=== PATIENT | male | born 1940 | race Caucasian/White ===

== ENCOUNTER 2016-05-05 08:28 | Outpatient (CLI) | payer MEDICARE ==
[2016-05-05 09:17] LABS: #Basophils 0.1 thou/uL (0.0-0.2); #Eosinphils 0.1 thou/uL (0.0-0.7); #Lymphocytes 3.4 thou/uL (1.20-3.40); #Monocytes 0.7 thou/uL (0.11-0.59); #Neutrophils 6.1 thou/uL (1.40-6.50); %Eosinophils 0.8 % (0.0-10.0); %Monocytes 6.6 % (0.0-10.0); %Neutrophils 58.5 % (42.0-75.0); Mean Corpuscular HGB CONC 33.9 g/dL (32.0-36.0); Mean Corpuscular Hemoglobin 31.2 pg (27.0-31.0); Mean Platelet Volume 9.1 fL (7.4-10.4); Platelet Count 272 thou/uL (130-400); RBC Distribution Width 11.7 % (11.5-14.5); Red Blood Cell (RBC) Count 4.79 mill/uL (4.70-6.10); White Blood Cell (WBC) Count 10.4 thou/uL (4.8-10.8)
[2016-05-05 09:29] LABS: Hemoglobin A1c 7.1 % (4.0-6.0)
[2016-05-05 09:47] LABS: ALT (SGPT) 24 U/L (0-55); AST (SGOT) 21 U/L (5-34); Albumin 4.2 g/dL (3.4-4.8); Alkaline Phosphatase 54 U/L (40-150); Anion Gap 15 mmol/L (10-20); BUN (Urea Nitrogen) 15 mg/dL (8.4-25.7); Bilirubin, Direct 0.2 mg/dL (0.1-0.3); Bilirubin, Total 0.5 mg/dL (0.2-1.2); Calc. Creatinine Clearance 0 mL/min (70-130); Calcium 9.5 mg/dL (7.8-10.44); Carbon Dioxide 23 mmol/L (23-31); Chloride 103 mmol/L (98-107); Cholesterol 183 mg/dL (< 200 Desired); Estimated GFR-MDRD 56; Glucose 153 mg/dL (83-110); HDL Cholesterol 46 mg/dL (>60 Neg Risk); LDL Cholesterol, Calculated 105 mg/dL; Protein, Total 7.5 g/dL (5.8-8.1); Sodium 137 mmol/L (136-145); Triglycerides 158 mg/dL (Less than 150)
[2016-05-05 17:37] LABS: Creatinine, Urine 234.97 mg/dL (63-166); Microalbumin Urine 1.5 mg/dL (0.5-50.0); Microalbumin/Creat Ratio 6.4 mg/g (Less than 30)
== END 2016-05-05 08:29 ==
LOC: MADLABBHPM 08:28
PROVIDERS: ATTEND Family Medicine
DX: E78.5 Hyperlipidemia, unspecified (principal); E11.22 Type 2 diabetes mellitus with diabetic chronic kidney disease; N18.3 Chronic kidney disease, stage 3 (moderate)
CPT/HCPCS: 36415; 80048; 80061; 80076; 82043; 82570; 83036; 85025

== ENCOUNTER 2016-08-03 08:51 | Outpatient (CLI) | payer MEDICARE ==
[2016-08-03 09:22] LABS: Hemoglobin A1c 7.7 % (4.0-6.0)
[2016-08-03 09:24] LABS: ALT (SGPT) 25 U/L (0-55); AST (SGOT) 24 U/L (5-34); Albumin 4.2 g/dL (3.4-4.8); Alkaline Phosphatase 61 U/L (40-150); Anion Gap 15 mmol/L (10-20); BUN (Urea Nitrogen) 19 mg/dL (8.4-25.7); Bilirubin, Direct 0.2 mg/dL (0.1-0.3); Bilirubin, Total 0.6 mg/dL (0.2-1.2); Calc. Creatinine Clearance 0 mL/min (70-130); Calcium 9.7 mg/dL (7.8-10.44); Carbon Dioxide 23 mmol/L (23-31); Cardiac Risk 4.4 (Less than 4.5); Chloride 102 mmol/L (98-107); Cholesterol 194 mg/dL (< 200 Desired); Estimated GFR-MDRD 55; Glucose 171 mg/dL (83-110); HDL Cholesterol 44 mg/dL (>60 Neg Risk); LDL Cholesterol, Calculated 111 mg/dL; Potassium 4.1 mmol/L (3.5-5.1); Protein, Total 7.7 g/dL (5.8-8.1); Sodium 136 mmol/L (136-145); Triglycerides 193 mg/dL (Less than 150)
== END 2016-08-03 08:52 ==
LOC: MADLABBHPM 08:51
PROVIDERS: ATTEND Family Medicine
DX: E11.9 Type 2 diabetes mellitus without complications (principal)
CPT/HCPCS: 36415; 80048; 80061; 80076; 83036

== ENCOUNTER 2016-08-24 09:01 | Outpatient (CLI) | payer MEDICARE | END 2016-08-24 09:02 | disposition home or self-care (01) | LOC: MADLAB 09:01 | PROVIDERS: ATTEND Internal Medicine Gastroenterology | DX: K51.90 Ulcerative colitis, unspecified, without complications (principal) | CPT/HCPCS: 36415; 87015; 87045; 87046; 87177; 87324; 87449; 87899 ==

== ENCOUNTER 2016-11-02 08:52 | Outpatient (CLI) | payer MEDICARE ==
[2016-11-02 09:51] LABS: #Basophils 0.1 thou/uL (0.0-0.2); #Eosinphils 0.1 thou/uL (0.0-0.7); #Lymphocytes 3.8 thou/uL (1.20-3.40); #Monocytes 0.7 thou/uL (0.11-0.59); #Neutrophils 5.6 thou/uL (1.40-6.50); %Basophils 1.1 % (0.0-1.0); %Eosinophils 0.9 % (0.0-10.0); %Lymphocytes 37.2 % (21.0-51.0); %Monocytes 6.9 % (0.0-10.0); Hemoglobin 14.7 g/dL (14.0-18.0); Mean Corpuscular HGB CONC 32.7 g/dL (32.0-36.0); Mean Corpuscular Hemoglobin 30.3 pg (27.0-31.0); Mean Corpuscular Volume 92.6 fl (80.0-94.0); Mean Platelet Volume 8.8 fL (7.4-10.4); Platelet Count 256 thou/uL (130-400); RBC Distribution Width 12.2 % (11.5-14.5); Red Blood Cell (RBC) Count 4.87 mill/uL (4.70-6.10); White Blood Cell (WBC) Count 10.3 thou/uL (4.8-10.8)
[2016-11-02 09:54] LABS: ALT (SGPT) 22 U/L (8-55); AST (SGOT) 17 U/L (5-34); Alkaline Phosphatase 58 U/L (40-150); Anion Gap 14 mmol/L (10-20); BUN (Urea Nitrogen) 12 mg/dL (8.4-25.7); Bilirubin, Direct 0.2 mg/dL (0.1-0.3); Bilirubin, Total 0.6 mg/dL (0.2-1.2); Calc. Creatinine Clearance 0 mL/min (70-130); Calcium 9.6 mg/dL (7.8-10.44); Carbon Dioxide 23 mmol/L (23-31); Cardiac Risk 3.9 (Less than 4.5); Chloride 103 mmol/L (98-107); Cholesterol 178 mg/dl (< 200 Desired); Estimated GFR-MDRD 63; Glucose 177 mg/dL (83-110); HDL Cholesterol 46 mg/dL (>60 Neg Risk); LDL Cholesterol, Calculated 96 mg/dL; Potassium 4.1 mmol/L (3.5-5.1); Protein, Total 7.7 g/dL (5.8-8.1); Sodium 136 mmol/L (136-145); Triglycerides 180 mg/dL (Less than 150)
[2016-11-02 11:38] LABS: Hemoglobin A1c 7.9 % (4.0-6.0)
== END 2016-11-02 08:53 ==
LOC: MADLABBHPM 08:52
PROVIDERS: ATTEND Family Medicine
DX: E78.5 Hyperlipidemia, unspecified (principal); E11.9 Type 2 diabetes mellitus without complications; K51.919 Ulcerative colitis, unspecified with unspecified complications
CPT/HCPCS: 80048; 80061; 80076; 83036; 85025

== ENCOUNTER 2017-01-05 10:21 | Outpatient (CLI) | payer MEDICARE | END 2017-01-05 10:22 | disposition home or self-care (01) | LOC: MADLAB 10:21 | PROVIDERS: ATTEND Internal Medicine Gastroenterology | DX: R19.7 Diarrhea, unspecified (principal) | CPT/HCPCS: 36415; 87324; 87449 ==

== ENCOUNTER 2017-04-03 09:49 | Outpatient (CLI) | payer MEDICARE ==
[~2017-04-03 09:49] MED LIST: Iopamidol 370 76% 100 ML VIAL ONE
--- NOTE | 2017-04-03 14:44 | ULT ---
RIGHT UPPER QUADRANT ULTRASOUND: DATE: 04/03/17. COMPARISON: None. HISTORY: Colitis, hepatitis C. TECHNIQUE: Multiplanar, zhou scale, sonographic imaging of the right upper quadrant provided. FINDINGS: The pancreas is not well assessed secondary to body habitus and bowel gas. The hepatic parenchyma is heterogeneous. Portions of the liver are obscured secondary to shadowing from bowel gas and shadowing from overlying ribs. No discrete intrahepatic mass or biliary dilatation appreciated. The right kidney measures a pproximately 12.8 cm in craniocaudal dimension and demonstrates no stone, hydronephrosis, or mass. Common bile duct measures in the 4-5 mm range, within normal limits. Imaging in the expected location of the gallbladder fossa demonstrates prominent shadowing suggesting a gallbladder filled with stones. This limits evaluation for pericholecystic fluid and gallbladder wall thickening. 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 IMPRESSION: Limited study secondary to bowel gas. Hepatic parenchyma is heterogeneous and echogenic, suggesting hepatocellular disease. 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 Recommend fur ther assessment via CT examination of the abdomen. CODE T POS: ANA CRISTINA
--- NOTE | 2017-04-03 15:06 | CT ---
ABDOMEN CT WITH CONTRAST PELVIC CT WITH CONTRAST: Date: 04/03/17 COMPARISON: 01/24/17. HISTORY: Chronic hepatitis C. Surgical colectomy years ago. History of ulcerative colitis. TECHNIQUE: An abdomen and pelvic CT are performed with IV contrast. Enteric contrast was also administered. Joseph nal reformatted images are submitted for interpretation. FINDINGS: ABDOMEN CT: Calcified granuloma in right lung base. Heart size normal. No significant pericardial fluid. Coronary arteries are unremarkable. The descending thoracic aorta and abdominal aorta demonstrate atheroscler osis. No aneurysm. No acute dissection. 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 Eccentric thrombus is noted. Proximal common iliac arteries are unremark able. Symmetric attenuation of the psoas muscles. Intra and extrahepatic portal vein is patent. Liver, spleen, pancreas, and adrenal glands have appropriate enhancement. Symmetric enhancement of the kidneys. Bilaterally, no obstructive uropathy. There is dehiscence of the ventral abdominal wall. Mesentery and intra-abdominal contents do not appe ar to extend beyond the anterior peritoneum. No evidence of herniation. No evidence of bowel obstruct ion. Residual colon is unremarkable. There are calcifications in the wall of the gallbladder, unchanged from the prior exam. PELVIC CT: No pelvic mass, lymphadenopathy, free air, or free fluid, Urinary bladder is unremarkable. No lytic or blastic lesions in the osseous structures. IMPRESSION: 1. Findings compatible with a near complete total colectomy. No inflammatory change involving the vi sualized alimentary canal. 2. Dehiscence of the ventral abdominal wall without vernon herniation. Findings are similar to the pr evious examination. POS: TANVI
== END 2017-04-03 09:50 | disposition home or self-care (01) ==
LOC: MADRAD 09:49
PROVIDERS: ATTEND Internal Medicine Gastroenterology
DX: K51.90 Ulcerative colitis, unspecified, without complications (principal); B18.2 Chronic viral hepatitis C
CPT/HCPCS: 36415; 74177; 76705; 82565

== ENCOUNTER 2017-07-07 09:36 | Outpatient (CLI) | payer MEDICARE ==
[2017-07-07 10:22] LABS: Anion Gap 18 mmol/L (10-20); BUN (Urea Nitrogen) 21 mg/dL (8.4-25.7); Calc. Creatinine Clearance 0 mL/min (70-130); Calcium 9.4 mg/dL (7.8-10.44); Carbon Dioxide 20 mmol/L (23-31); Chloride 102 mmol/L (98-107); Estimated GFR-MDRD 68; Glucose 156 mg/dL (83-110); Potassium 3.4 mmol/L (3.5-5.1); Sodium 137 mmol/L (136-145)
== END 2017-07-07 09:37 | disposition home or self-care (01) ==
LOC: MADLABBHPM 09:36
PROVIDERS: ATTEND Family Medicine
DX: E11.9 Type 2 diabetes mellitus without complications (principal)
CPT/HCPCS: 36415; 80048

== ENCOUNTER 2017-09-01 09:58 | Emergency (ER) | payer MEDICARE ==
[~2017-09-01 09:58] MED LIST changes: -Iopamidol 370 76% 100 ML VIAL ONE; +Sodium Chloride 0.9% 1,000 ML BAG ONE
[2017-09-01] MEDS ORDERED: Metoclopramide HCl 10 MG/2 ML VIAL ONE (10:35)
[2017-09-01] MEDS ORDERED: Ketorolac Tromethamine 30 MG/ML VIAL ONE (10:35)
[2017-09-01] MEDS ORDERED: methylPREDNISolone Sod Succ/PF 125 MG/2 ML VIAL ONE (10:35)
[2017-09-01] MEDS ORDERED: Dexamethasone 10 MG/ML VIAL ONE (10:35)
[2017-09-01] MEDS ORDERED: Ondansetron HCl/PF 4 MG/2 ML Vial ONE (10:35)
[2017-09-01 10:46] LABS: Prothrombin Time 13.6 SEC (12.0-14.7)
[2017-09-01 10:47] LABS: PTT 28.6 SEC (22.9-36.1)
[2017-09-01 10:51] LABS: Band 2 % (5-11); Hemoglobin 14.1 g/dL (14.0-18.0); Lymphocytes 12 % (21-51); MDiff Complete? YES; Mean Corpuscular HGB CONC 32.8 g/dL (32.0-36.0); Mean Corpuscular Volume 85.2 fl (80.0-94.0); Mean Platelet Volume 7.1 fL (7.4-10.4); Metamyelocyte 2 % (0-0); Monocytes 4 % (0-10); Neutrophil 80 % (42-75); Platelet Count 299 thou/uL (130-400); Red Blood Cell (RBC) Count 5.06 mill/uL (4.70-6.10); White Blood Cell (WBC) Count 10.9 thou/uL (4.8-10.8)
[2017-09-01 11:10] LABS: CKMB 0.6 ng/mL (0-6.6); Troponin I 0.017 ng/mL (< 0.028)
[2017-09-01 11:11] LABS: ALT (SGPT) 20 U/L (8-55); AST (SGOT) 18 U/L (5-34); Albumin 3.7 g/dL (3.4-4.8); Alkaline Phosphatase 72 U/L (40-150); Anion Gap 21 mmol/L (10-20); BUN (Urea Nitrogen) 21 mg/dL (8.4-25.7); Bilirubin, Total 0.6 mg/dL (0.2-1.2); Calc. Creatinine Clearance 0 mL/min (70-130); Calcium 10.1 mg/dL (7.8-10.44); Carbon Dioxide 21 mmol/L (23-31); Chloride 102 mmol/L (98-107); Estimated GFR-MDRD 54; Globulin 4.1 g/dL (2.4-3.5); Glucose 174 mg/dL (83-110); Lipase 30 U/L (8-78); Magnesium 1.5 mg/dL (1.6-2.6); Potassium 3.8 mmol/L (3.5-5.1); Protein, Total 7.8 g/dL (5.8-8.1)
[2017-09-01 11:13] LABS: Sodium 140 mmol/L (136-145)
[2017-09-01 11:24] LABS: CK (CPK) 35 U/L (30-200)
--- NOTE | 2017-09-01 11:40 | RAD ---
PORTABLE CHEST ONE VIEW: 09/01/2017 10:23 a.m. HISTORY: Abdominal pain. COMPARISON: 03/15/2017 FINDINGS: Heart size is borderline but stable. Evidence of old granulomatous disease is again seen. No focal areas of consolidation, pneumothoraces, vernon pulmonary edema, or pleural effusions are identified. IMPRESSION: No acute process. POS: [facility]
[2017-09-01 11:48] LABS: Bilirubin Small (Negative); Blood, Urine Moderate (Negative); Clarity Clear (Clear); Glucose, Urine (Dipstick) 100 mg/dL (Negative); Leukocyte Negative (Negative); Nitrite Negative (Negative); Protein, Urine (Dipstick) > or equal to 300 mg/dL (Neg-Trace); Urobilinogen 0.2 mg/dL (0.2-1.0); pH, Urine 5.5 (5.0-9.0)
[2017-09-01 11:52] LABS: Bacteria/HPF Rare-Few HPF (None Seen); Other Microscopic Description C&S SET UP; RBC/HPF 0-3 HPF (0-3); Squamous Epithelial 0-3 HPF (0-3); WBC/HPF 0-3 HPF (0-3)
== END 2017-09-01 16:39 | disposition short-term general hospital (02) ==
LOC: MADERS 09:58
DX: E27.40 Unspecified adrenocortical insufficiency (principal); E11.9 Type 2 diabetes mellitus without complications; K58.9 Irritable bowel syndrome, unspecified; E78.5 Hyperlipidemia, unspecified; I10 Essential (primary) hypertension
CPT/HCPCS: 36415; 36416; 71045; 80053; 81001; 82150; 82553; 83690; 83735; 83880; 84484; 85025; 85610; 85730; 87077; 87086; 93005; 94760; 96361; 96374; 96375; J1100; J1885; J2405; J2765; J2930; J7050

== ENCOUNTER 2017-10-05 10:30 | Outpatient (CLI) | payer MEDICARE ==
[2017-10-05 11:13] LABS: #Basophils 0.1 thou/uL (0.0-0.2); #Lymphocytes 3.1 thou/uL (1.20-3.40); #Monocytes 0.5 thou/uL (0.11-0.59); #Neutrophils 11.7 thou/uL (1.40-6.50); %Basophils 0.4 % (0.0-1.0); %Eosinophils 0.2 % (0.0-10.0); %Lymphocytes 20.2 % (21.0-51.0); %Monocytes 3.5 % (0.0-10.0); %Neutrophils 75.8 % (42.0-75.0); Hemoglobin 13.7 g/dL (14.0-18.0); Mean Corpuscular HGB CONC 32.8 g/dL (32.0-36.0); Mean Corpuscular Hemoglobin 28.4 pg (27.0-31.0); Mean Corpuscular Volume 86.6 fL (78.0-98.0); Mean Platelet Volume 7.5 fL (7.4-10.4); Platelet Count 298 thou/uL (130-400); Red Blood Cell (RBC) Count 4.83 mill/uL (4.70-6.10); White Blood Cell (WBC) Count 15.4 thou/uL (4.8-10.8)
[2017-10-05 11:24] LABS: Anion Gap 15 mmol/L (10-20); BUN (Urea Nitrogen) 16 mg/dL (8.4-25.7); Calc. Creatinine Clearance 0 mL/min (70-130); Calcium 9.7 mg/dL (7.8-10.44); Carbon Dioxide 26 mmol/L (23-31); Chloride 101 mmol/L (98-107); Estimated GFR-MDRD 71; Glucose 215 mg/dL (83-110); Potassium 4.2 mmol/L (3.5-5.1); Sodium 138 mmol/L (136-145)
== END 2017-10-05 10:31 ==
LOC: MADLABBHPM 10:30
PROVIDERS: ATTEND Family Medicine
DX: E11.22 Type 2 diabetes mellitus with diabetic chronic kidney disease (principal); N18.3 Chronic kidney disease, stage 3 (moderate)
CPT/HCPCS: 36415; 80048; 85025

== ENCOUNTER 2020-08-05 19:20 | Inpatient (IN) | payer MEDICARE ==
[2020-08-05] MEDS ORDERED: predniSONE 5 MG TAB PO SCH (22:15)
[2020-08-05] MEDS ORDERED: Acetaminophen 325 MG TAB PO PRN (22:21)
[2020-08-05] MEDS ORDERED: Nystatin Powder 15 GM BOT TOP SCH (22:30)
[2020-08-05] MEDS ORDERED: metFORMIN 500 MG TAB PO SCH (22:30)
[2020-08-05] MEDS: Cholestyramine/Aspartame 4 gm Packet PO SCH ×2 (22:37→23:17)
[2020-08-05] MEDS ORDERED: Lantus 1000 UNITS/10 ML VIAL SC SCH (23:15)
[2020-08-05] MEDS ORDERED: Carvedilol 3.125 MG TAB PO SCH (23:15)
[2020-08-05] MEDS: Vancomycin HCl 25 MG/ML Oral PO SCH (23:45)
[2020-08-06] MEDS: Vancomycin HCl 25 MG/ML Oral PO SCH ×4 (05:26→23:53)
[2020-08-06 05:43] LABS: #Basophils 0.1 thou/uL (0.0-0.2); #Eosinphils 0.1 thou/uL (0.0-0.7); #Lymphocytes 3.3 thou/uL (1.20-3.40); #Monocytes 0.6 thou/uL (0.11-0.59); #Neutrophils 11.5 thou/uL (1.40-6.50); %Basophils 0.4 % (0.0-1.0); %Eosinophils 0.5 % (0.0-10.0); %Lymphocytes 21.4 % (21.0-51.0); %Monocytes 3.6 % (0.0-10.0); %Neutrophils 74.2 % (42.0-75.0); Anisocytosis SLIGHT = 6-15 cells (100X) (0-5/hpf); Hemoglobin 9.8 g/dL (14.0-18.0); Hypochromia SLIGHT = 6-15 cells (100X) (0-5/hpf); MDiff Complete? YES; Mean Corpuscular HGB CONC 30.7 g/dL (32.0-36.0); Mean Corpuscular Hemoglobin 23.6 pg (27.0-31.0); Mean Corpuscular Volume 76.9 fL (78.0-98.0); Mean Platelet Volume 8.1 fL (7.4-10.4); Platelet Count 387 thou/uL (130-400); Platelet Morphology Comment Appears Adequate; RBC Distribution Width 17.5 % (11.5-14.5); Red Blood Cell (RBC) Count 4.14 mill/uL (4.70-6.10); White Blood Cell (WBC) Count 15.5 thou/uL (4.8-10.8)
[2020-08-06 05:47] LABS: ALT (SGPT) 19 U/L (8-55); AST (SGOT) 15 U/L (5-34); Albumin 3.2 g/dL (3.4-4.8); Alkaline Phosphatase 69 U/L (40-110); Anion Gap 16 mmol/L (10-20); BUN (Urea Nitrogen) 20 mg/dL (8.4-25.7); Bilirubin, Total 0.4 mg/dL (0.2-1.2); Calc. Creatinine Clearance 90 mL/min (70-130); Calcium 8.3 mg/dL (7.8-10.44); Carbon Dioxide 25 mmol/L (23-31); Chloride 108 mmol/L (98-107); Globulin 2.9 g/dL (2.4-3.5); Glucose 138 mg/dL (83-110); Potassium 3.7 mmol/L (3.5-5.1); Protein, Total 6.1 g/dL (5.8-8.1); Sodium 145 mmol/L (136-145)
[2020-08-06] MEDS ORDERED: Dextrose 50% Abboject 50 ML SYRINGE IVP PRN (07:15)
[2020-08-06] MEDS ORDERED: Dextrose 5% in Water 1,000 ML IV PRN (07:15)
[2020-08-06] MEDS ORDERED: Acetaminophen 325 MG TAB PO PRN ×2 (08:40→08:41)
[2020-08-06] MEDS ORDERED: Diphenoxylate HCl/Atropine Tablet PO PRN (08:42)
[2020-08-06] MEDS ORDERED: NIFEdipine XL 30 MG TAB PO SCH (09:00)
[2020-08-06] MEDS: metFORMIN 500 MG TAB PO SCH ×2 (09:54→17:10)
[2020-08-06] MEDS: Losartan Potassium 50 MG TAB PO SCH (09:54)
[2020-08-06] MEDS: Aspirin 81 mg Enteric Coated Tablet PO SCH (09:55)
[2020-08-06] MEDS: Carvedilol 3.125 MG TAB PO SCH ×2 (09:55→22:04)
[2020-08-06] MEDS: predniSONE 5 MG TAB PO SCH ×2 (09:55→17:10)
[2020-08-06] MEDS: Furosemide 20 MG TAB PO SCH (09:55)
[2020-08-06] MEDS: Rosuvastatin 10 MG TAB PO SCH (09:55)
[2020-08-06] MEDS: Nystatin Powder 15 GM BOT TOP SCH ×2 (09:56→22:09)
[2020-08-06] MEDS ORDERED: Cholestyramine/Aspartame 4 gm Packet PO SCH (10:00)
[2020-08-06] MEDS ORDERED: Lantus 1000 UNITS/10 ML VIAL SC SCH (21:00)
[2020-08-06] MEDS: Atorvastatin Calcium 10 MG TAB PO SCH (22:04)
[2020-08-06] MEDS: Lantus 1000 UNITS/10 ML VIAL SC SCH (22:06)
[2020-08-06] MEDS: Acetaminophen 325 MG TAB PO PRN (22:43)
[2020-08-07 05:43] LABS: #Lymphocytes 2.9 thou/uL (1.20-3.40); #Monocytes 0.6 thou/uL (0.11-0.59); #Neutrophils 7.3 thou/uL (1.40-6.50); %Basophils 0.4 % (0.0-1.0); %Eosinophils 0.4 % (0.0-10.0); %Lymphocytes 26.4 % (21.0-51.0); %Monocytes 5.9 % (0.0-10.0); %Neutrophils 66.9 % (42.0-75.0); Anisocytosis SLIGHT = 6-15 cells (100X) (0-5/hpf); Hemoglobin 8.5 g/dL (14.0-18.0); Hypochromia SLIGHT = 6-15 cells (100X) (0-5/hpf); MDiff Complete? YES; Mean Corpuscular HGB CONC 30.4 g/dL (32.0-36.0); Mean Corpuscular Hemoglobin 23.4 pg (27.0-31.0); Mean Corpuscular Volume 76.9 fL (78.0-98.0); Mean Platelet Volume 8.2 fL (7.4-10.4); Platelet Count 329 thou/uL (130-400); Platelet Morphology Comment Appears Adequate; RBC Distribution Width 17.1 % (11.5-14.5); Red Blood Cell (RBC) Count 3.63 mill/uL (4.70-6.10); White Blood Cell (WBC) Count 10.9 thou/uL (4.8-10.8)
[2020-08-07] MEDS: Vancomycin HCl 25 MG/ML Oral PO SCH ×4 (05:56→23:05)
[2020-08-07] MEDS: Aspirin 81 mg Enteric Coated Tablet PO SCH (09:25)
[2020-08-07] MEDS: predniSONE 5 MG TAB PO SCH ×2 (09:26→17:10)
[2020-08-07] MEDS: Clopidogrel Bisulfate 75 MG TAB PO SCH (09:27)
[2020-08-07] MEDS: metFORMIN 500 MG TAB PO SCH ×2 (09:27→17:11)
[2020-08-07] MEDS: Rosuvastatin 10 MG TAB PO SCH (09:27)
[2020-08-07] MEDS: Furosemide 20 MG TAB PO SCH (09:27)
[2020-08-07] MEDS: Carvedilol 3.125 MG TAB PO SCH ×2 (09:28→22:00)
[2020-08-07] MEDS: Nystatin Powder 15 GM BOT TOP SCH ×2 (09:28→22:02)
[2020-08-07] MEDS: Losartan Potassium 50 MG TAB PO SCH (09:28)
[2020-08-07 11:40] LABS: Hemoglobin A1c 6.9 % (4.0-6.0)
[2020-08-07] MEDS: HumaLOG 300 UNITS/3 ML VIAL SC PRN (17:08)
[2020-08-07] MEDS: Acetaminophen 325 MG TAB PO PRN (17:11)
[2020-08-07] MEDS: Atorvastatin Calcium 10 MG TAB PO SCH (22:00)
[2020-08-07] MEDS: Lantus 1000 UNITS/10 ML VIAL SC SCH (22:01)
[2020-08-08] MEDS: Vancomycin HCl 25 MG/ML Oral PO SCH ×4 (05:42→23:36)
[2020-08-08] MEDS: metFORMIN 500 MG TAB PO SCH ×2 (08:14→17:07)
[2020-08-08] MEDS: Rosuvastatin 10 MG TAB PO SCH (08:14)
[2020-08-08] MEDS: Clopidogrel Bisulfate 75 MG TAB PO SCH (08:14)
[2020-08-08] MEDS: Furosemide 20 MG TAB PO SCH (08:14)
[2020-08-08] MEDS: Losartan Potassium 50 MG TAB PO SCH ×2 (08:14→08:15)
[2020-08-08] MEDS: Aspirin 81 mg Enteric Coated Tablet PO SCH (08:14)
[2020-08-08] MEDS: Carvedilol 3.125 MG TAB PO SCH ×2 (08:15→21:41)
[2020-08-08] MEDS: predniSONE 5 MG TAB PO SCH ×2 (08:15→17:08)
[2020-08-08] MEDS: Nystatin Powder 15 GM BOT TOP SCH ×2 (08:16→21:42)
[2020-08-08] MEDS: HumaLOG 300 UNITS/3 ML VIAL SC PRN (17:09)
[2020-08-08] MEDS: Atorvastatin Calcium 10 MG TAB PO SCH (21:40)
[2020-08-08] MEDS: Lantus 1000 UNITS/10 ML VIAL SC SCH (21:42)
[2020-08-08] MEDS: Acetaminophen 325 MG TAB PO PRN (21:42)
[2020-08-08] MEDS ORDERED: Mag-Al Plus 1200 MG/1200 MG/120 MG/30 ML UDCUP PO PRN (23:12)
[2020-08-09] MEDS: Aspirin 81 mg Enteric Coated Tablet PO SCH (11:07)
[2020-08-09] MEDS: Vancomycin HCl 25 MG/ML Oral PO SCH ×3 (11:07→17:11)
[2020-08-09] MEDS: metFORMIN 500 MG TAB PO SCH ×2 (11:07→17:13)
[2020-08-09] MEDS: predniSONE 5 MG TAB PO SCH ×2 (11:07→17:11)
[2020-08-09] MEDS: Nystatin Powder 15 GM BOT TOP SCH ×2 (11:08→20:55)
[2020-08-09] MEDS: Carvedilol 3.125 MG TAB PO SCH ×2 (11:08→20:48)
[2020-08-09] MEDS: Furosemide 20 MG TAB PO SCH (11:08)
[2020-08-09] MEDS: Clopidogrel Bisulfate 75 MG TAB PO SCH (11:08)
[2020-08-09] MEDS: Rosuvastatin 10 MG TAB PO SCH (11:09)
[2020-08-09] MEDS ORDERED: Ondansetron ODT 4 MG TAB SL PRN (18:05)
[2020-08-09] MEDS: Atorvastatin Calcium 10 MG TAB PO SCH (20:48)
[2020-08-09] MEDS: Lantus 1000 UNITS/10 ML VIAL SC SCH (21:14)
[2020-08-10] MEDS: Vancomycin HCl 25 MG/ML Oral PO SCH ×4 (00:13→18:04)
[2020-08-10 07:29] LABS: Anion Gap 13 mmol/L (10-20); BUN (Urea Nitrogen) 21 mg/dL (8.4-25.7); Calc. Creatinine Clearance 97 mL/min (70-130); Calcium 8.1 mg/dL (7.8-10.44); Carbon Dioxide 26 mmol/L (23-31); Chloride 107 mmol/L (98-107); Glucose 109 mg/dL (83-110); Potassium 3.8 mmol/L (3.5-5.1); Sodium 142 mmol/L (136-145)
[2020-08-10] MEDS: Acetaminophen 325 MG TAB PO PRN (07:40)
[2020-08-10 07:45] LABS: #Basophils 0.1 thou/uL (0.0-0.2); #Eosinphils 0.1 thou/uL (0.0-0.7); #Lymphocytes 3.9 thou/uL (1.20-3.40); #Monocytes 0.8 thou/uL (0.11-0.59); %Basophils 0.5 % (0.0-1.0); %Eosinophils 0.6 % (0.0-10.0); %Lymphocytes 30.5 % (21.0-51.0); %Monocytes 6.3 % (0.0-10.0); %Neutrophils 62.2 % (42.0-75.0); Hemoglobin 9.1 g/dL (14.0-18.0); Mean Corpuscular HGB CONC 29.9 g/dL (32.0-36.0); Mean Corpuscular Volume 76.8 fL (78.0-98.0); Platelet Count 342 thou/uL (130-400); RBC Distribution Width 17.3 % (11.5-14.5); Red Blood Cell (RBC) Count 3.98 mill/uL (4.70-6.10); White Blood Cell (WBC) Count 12.9 thou/uL (4.8-10.8)
[2020-08-10 07:48] LABS: Platelet Morphology Comment Appears Adequate
[2020-08-10] MEDS ORDERED: predniSONE 5 MG TAB PO SCH (07:55)
[2020-08-10] MEDS: metFORMIN 500 MG TAB PO SCH ×2 (09:02→17:07)
[2020-08-10] MEDS: Aspirin 81 mg Enteric Coated Tablet PO SCH (09:02)
[2020-08-10] MEDS: Carvedilol 3.125 MG TAB PO SCH ×2 (09:03→20:41)
[2020-08-10] MEDS: Rosuvastatin 10 MG TAB PO SCH (09:03)
[2020-08-10] MEDS: Furosemide 20 MG TAB PO SCH (09:03)
[2020-08-10] MEDS: Clopidogrel Bisulfate 75 MG TAB PO SCH (09:03)
[2020-08-10] MEDS: Losartan Potassium 50 MG TAB PO SCH (09:03)
[2020-08-10] MEDS: Nystatin Powder 15 GM BOT TOP SCH ×2 (09:06→20:52)
[2020-08-10 11:03] VITALS: BMI 32.3
[2020-08-10] MEDS: predniSONE 5 MG TAB PO SCH (17:07)
[2020-08-10] MEDS: Atorvastatin Calcium 10 MG TAB PO SCH (20:39)
[2020-08-10] MEDS: Lantus 1000 UNITS/10 ML VIAL SC SCH (20:45)
[2020-08-11] MEDS: Vancomycin HCl 25 MG/ML Oral PO SCH ×5 (00:11→23:10)
[2020-08-11] MEDS: metFORMIN 500 MG TAB PO SCH ×2 (08:54→17:10)
[2020-08-11] MEDS: predniSONE 5 MG TAB PO SCH ×2 (08:55→17:10)
[2020-08-11] MEDS: Acetaminophen 325 MG TAB PO PRN (08:55)
[2020-08-11] MEDS: Rosuvastatin 10 MG TAB PO SCH (08:55)
[2020-08-11] MEDS: Carvedilol 3.125 MG TAB PO SCH ×2 (08:55→21:24)
[2020-08-11] MEDS: Clopidogrel Bisulfate 75 MG TAB PO SCH (08:55)
[2020-08-11] MEDS: Furosemide 20 MG TAB PO SCH (08:55)
[2020-08-11] MEDS: Aspirin 81 mg Enteric Coated Tablet PO SCH (08:55)
[2020-08-11] MEDS: Losartan Potassium 50 MG TAB PO SCH (08:55)
[2020-08-11] MEDS: Nystatin Powder 15 GM BOT TOP SCH ×2 (08:58→23:14)
[2020-08-11] MEDS: HumaLOG 300 UNITS/3 ML VIAL SC PRN (17:16)
[2020-08-11] MEDS: Atorvastatin Calcium 10 MG TAB PO SCH (21:23)
[2020-08-11] MEDS: Lantus 1000 UNITS/10 ML VIAL SC SCH (21:26)
[2020-08-12] MEDS: Vancomycin HCl 25 MG/ML Oral PO SCH ×4 (05:05→23:14)
[2020-08-12] MEDS: metFORMIN 500 MG TAB PO SCH ×2 (09:22→17:10)
[2020-08-12] MEDS: Losartan Potassium 50 MG TAB PO SCH (09:24)
[2020-08-12] MEDS: Clopidogrel Bisulfate 75 MG TAB PO SCH (09:24)
[2020-08-12] MEDS: Carvedilol 3.125 MG TAB PO SCH ×2 (09:24→20:41)
[2020-08-12] MEDS: predniSONE 5 MG TAB PO SCH ×2 (09:24→17:10)
[2020-08-12] MEDS: Furosemide 20 MG TAB PO SCH (09:24)
[2020-08-12] MEDS: Aspirin 81 mg Enteric Coated Tablet PO SCH (09:24)
[2020-08-12] MEDS: Nystatin Powder 15 GM BOT TOP SCH ×2 (09:24→21:20)
[2020-08-12] MEDS: Rosuvastatin 10 MG TAB PO SCH (09:25)
[2020-08-12] MEDS: HumaLOG 300 UNITS/3 ML VIAL SC PRN (17:12)
[2020-08-12] MEDS: Atorvastatin Calcium 10 MG TAB PO SCH (20:41)
[2020-08-12] MEDS: Lantus 1000 UNITS/10 ML VIAL SC SCH (20:42)
[2020-08-13] MEDS: Acetaminophen 325 MG TAB PO PRN ×2 (04:57→16:04)
[2020-08-13] MEDS: Vancomycin HCl 25 MG/ML Oral PO SCH ×3 (04:59→12:45)
[2020-08-13] MEDS: predniSONE 5 MG TAB PO SCH ×2 (08:11→16:04)
[2020-08-13] MEDS: Carvedilol 3.125 MG TAB PO SCH ×2 (08:12→21:01)
[2020-08-13] MEDS: Clopidogrel Bisulfate 75 MG TAB PO SCH (08:12)
[2020-08-13] MEDS: Losartan Potassium 50 MG TAB PO SCH (08:12)
[2020-08-13] MEDS: Furosemide 20 MG TAB PO SCH (08:12)
[2020-08-13] MEDS: Rosuvastatin 10 MG TAB PO SCH (08:12)
[2020-08-13] MEDS: Aspirin 81 mg Enteric Coated Tablet PO SCH (08:12)
[2020-08-13] MEDS: metFORMIN 500 MG TAB PO SCH ×2 (08:12→16:04)
[2020-08-13] MEDS: Nystatin Powder 15 GM BOT TOP SCH ×2 (08:18→21:09)
[2020-08-13] MEDS: HumaLOG 300 UNITS/3 ML VIAL SC PRN ×3 (08:27→17:11)
[2020-08-13] MEDS: Atorvastatin Calcium 10 MG TAB PO SCH (21:00)
[2020-08-13] MEDS: Lantus 1000 UNITS/10 ML VIAL SC SCH (21:03)
[2020-08-14] MEDS: Acetaminophen 325 MG TAB PO PRN (03:57)
[2020-08-14] MEDS: Rosuvastatin 10 MG TAB PO SCH (08:20)
[2020-08-14] MEDS: metFORMIN 500 MG TAB PO SCH (08:20)
[2020-08-14] MEDS: Clopidogrel Bisulfate 75 MG TAB PO SCH (08:20)
[2020-08-14] MEDS: Carvedilol 3.125 MG TAB PO SCH (08:20)
[2020-08-14] MEDS: Furosemide 20 MG TAB PO SCH (08:20)
[2020-08-14] MEDS: predniSONE 5 MG TAB PO SCH (08:21)
[2020-08-14] MEDS: Nystatin Powder 15 GM BOT TOP SCH (08:21)
[2020-08-14] MEDS: Aspirin 81 mg Enteric Coated Tablet PO SCH (08:21)
[2020-08-14] MEDS: Losartan Potassium 50 MG TAB PO SCH (08:21)
[2020-08-14 14:26] VITALS: BP 146/81; TEMP 97.9
== END 2020-08-14 13:25 | disposition home or self-care (01) | DRG 947 ==
LOC: MADMS 19:20
PROVIDERS: ADMIT Family Medicine; ATTEND Family Medicine
DX: R53.1 Weakness (principal); I22.2 Subsequent non-ST elevation (NSTEMI) myocardial infarction; E27.40 Unspecified adrenocortical insufficiency; K51.90 Ulcerative colitis, unspecified, without complications; E27.2 Addisonian crisis; K21.9 Gastro-esophageal reflux disease without esophagitis; I25.10 Atherosclerotic heart disease of native coronary artery without angina pectoris; Z79.82 Long term (current) use of aspirin; Z79.4 Long term (current) use of insulin; Z91.048 Other nonmedicinal substance allergy status; Z66 Do not resuscitate; G47.33 Obstructive sleep apnea (adult) (pediatric); E11.22 Type 2 diabetes mellitus with diabetic chronic kidney disease; N18.9 Chronic kidney disease, unspecified; E78.5 Hyperlipidemia, unspecified; I12.9 Hypertensive chronic kidney disease with stage 1 through stage 4 chronic kidney disease, or unspecified chronic kidney disease; D63.8 Anemia in other chronic diseases classified elsewhere; K43.9 Ventral hernia without obstruction or gangrene; M17.12 Unilateral primary osteoarthritis, left knee
CPT/HCPCS: 36415; 36416; 80048; 80053; 83036; 85025; J1815; J7512; Q0162

== ENCOUNTER 2020-08-21 12:27 | Outpatient (CLI) | payer MEDICARE ==
[2020-08-21 13:03] LABS: ALT (SGPT) 20 U/L (8-55); AST (SGOT) 14 U/L (5-34); Albumin 3.6 g/dL (3.4-4.8); Alkaline Phosphatase 70 U/L (40-110); Anion Gap 21 mmol/L (10-20); BUN (Urea Nitrogen) 25 mg/dL (8.4-25.7); Bilirubin, Total 0.4 mg/dL (0.2-1.2); Calc. Creatinine Clearance 0 mL/min (70-130); Calcium 8.3 mg/dL (7.8-10.44); Carbon Dioxide 17 mmol/L (23-31); Chloride 109 mmol/L (98-107); Globulin 2.9 g/dL (2.4-3.5); Glucose 192 mg/dL (83-110); Protein, Total 6.5 g/dL (5.8-8.1); Sodium 142 mmol/L (136-145)
[2020-08-21 13:14] LABS: #Lymphocytes 2.7 thou/uL (1.20-3.40); #Monocytes 0.7 thou/uL (0.11-0.59); #Neutrophils 11.9 thou/uL (1.40-6.50); %Basophils 0.3 % (0.0-1.0); %Eosinophils 0.1 % (0.0-10.0); %Lymphocytes 17.4 % (21.0-51.0); %Monocytes 4.6 % (0.0-10.0); %Neutrophils 77.7 % (42.0-75.0); Anisocytosis SLIGHT = 6-15 cells (100X) (0-5/hpf); Hemoglobin 10.4 g/dL (14.0-18.0); MDiff Complete? YES; Mean Corpuscular HGB CONC 29.3 g/dL (32.0-36.0); Mean Corpuscular Hemoglobin 22.7 pg (27.0-31.0); Mean Corpuscular Volume 77.6 fL (78.0-98.0); Mean Platelet Volume 8.4 fL (7.4-10.4); Platelet Count 461 thou/uL (130-400); Polychromasia SLIGHT = 2-3 cells (100X) (0-2/hpf); RBC Distribution Width 17.6 % (11.5-14.5); Red Blood Cell (RBC) Count 4.58 mill/uL (4.70-6.10); White Blood Cell (WBC) Count 15.4 thou/uL (4.8-10.8)
== END 2020-08-21 12:28 | disposition home or self-care (01) ==
LOC: MADLAB 12:27
PROVIDERS: ATTEND Family Medicine
DX: E27.2 Addisonian crisis (principal); E27.1 Primary adrenocortical insufficiency
CPT/HCPCS: 80053; 85025

== ENCOUNTER 2020-09-14 13:39 | Outpatient (CLI) | payer MEDICARE ==
[2020-09-14 14:46] LABS: Anion Gap 17 mmol/L (10-20); BUN (Urea Nitrogen) 25 mg/dL (8.4-25.7); Calc. Creatinine Clearance 0 mL/min (70-130); Carbon Dioxide 22 mmol/L (23-31); Chloride 108 mmol/L (98-107); Sodium 142 mmol/L (136-145)
[2020-09-14 14:47] LABS: Glucose 207 mg/dL (83-110)
[2020-09-14 15:08] LABS: #Basophils 0.1 thou/uL (0.0-0.2); #Eosinphils 0.1 thou/uL (0.0-0.7); #Lymphocytes 3.4 thou/uL (1.20-3.40); #Monocytes 0.9 thou/uL (0.11-0.59); #Neutrophils 5.6 thou/uL (1.40-6.50); %Basophils 0.6 % (0.0-1.0); %Eosinophils 0.5 % (0.0-10.0); %Lymphocytes 34.1 % (21.0-51.0); %Monocytes 8.9 % (0.0-10.0); %Neutrophils 55.9 % (42.0-75.0); Anisocytosis SLIGHT = 6-15 cells (100X) (0-5/hpf); Hemoglobin 10.7 g/dL (14.0-18.0); Hypochromia SLIGHT = 6-15 cells (100X) (0-5/hpf); MDiff Complete? YES; Mean Corpuscular HGB CONC 29.8 g/dL (32.0-36.0); Mean Corpuscular Hemoglobin 23.4 pg (27.0-31.0); Mean Corpuscular Volume 78.5 fL (78.0-98.0); Mean Platelet Volume 7.8 fL (7.4-10.4); Platelet Count 405 thou/uL (130-400); Platelet Morphology Comment Appears Increased; RBC Distribution Width 18.9 % (11.5-14.5)
[2020-09-15 11:57] LABS: Iron 69 ug/dL (65-175); Iron Binding Capacity, Total 291 mcg/dL (261-462)
== END 2020-09-14 13:40 | disposition home or self-care (01) ==
LOC: MADLAB 13:39
PROVIDERS: ATTEND Family Medicine
DX: E27.2 Addisonian crisis (principal)
CPT/HCPCS: 80048; 82728; 83540; 83550; 85025

== ENCOUNTER 2020-10-09 03:24 | Emergency (ER) | payer MEDICARE ==
[2020-10-09] MEDS ORDERED: Hydrocortisone Sod Succ/PF 100 mg/2 ml Vial ONE ×2 (04:45→04:48)
[2020-10-09] MEDS ORDERED: Sodium Chloride 0.9% 1,000 ML ONE ×2 (04:45→08:05)
[2020-10-09] MEDS ORDERED: Sterile Water 10 ML ONE (04:48)
[2020-10-09 04:50] LABS: INR-International Normal Ratio 0.9; Prothrombin Time 12.8 sec (12.0-14.7)
[2020-10-09 04:51] LABS: PTT 22.3 sec (22.9-36.1)
[2020-10-09 04:52] LABS: ALT (SGPT) 12 U/L (8-55); AST (SGOT) 10 U/L (5-34); Albumin 3.6 g/dL (3.4-4.8); Alkaline Phosphatase 58 U/L (40-110); Anion Gap 17 mmol/L (10-20); BUN (Urea Nitrogen) 26 mg/dL (8.4-25.7); Bilirubin, Total 0.3 mg/dL (0.2-1.2); Calc. Creatinine Clearance 0 mL/min (70-130); Carbon Dioxide 22 mmol/L (23-31); Chloride 111 mmol/L (98-107); Glucose 149 mg/dL (83-110); Lipase 48 U/L (8-78); Potassium 4.5 mmol/L (3.5-5.1); Protein, Total 6.6 g/dL (5.8-8.1); Sodium 145 mmol/L (136-145)
[2020-10-09 04:54] LABS: #Basophils 0.1 thou/uL (0.0-0.2); #Eosinphils 0.1 thou/uL (0.0-0.7); #Lymphocytes 3.7 thou/uL (1.20-3.40); #Monocytes 1.4 thou/uL (0.11-0.59); #Neutrophils 14.6 thou/uL (1.40-6.50); %Basophils 0.6 % (0.0-1.0); %Eosinophils 0.4 % (0.0-10.0); %Lymphocytes 18.6 % (21.0-51.0); %Monocytes 7.1 % (0.0-10.0); %Neutrophils 73.3 % (42.0-75.0); Hemoglobin 11.4 g/dL (14.0-18.0); Mean Corpuscular HGB CONC 30.3 g/dL (32.0-36.0); Mean Corpuscular Hemoglobin 24.4 pg (27.0-31.0); Mean Corpuscular Volume 80.7 fL (78.0-98.0); Platelet Count 317 thou/uL (130-400); Platelet Morphology Comment Appears Adequate; RBC Morphology Normal; Red Blood Cell (RBC) Count 4.68 mill/uL (4.70-6.10); White Blood Cell (WBC) Count 19.9 thou/uL (4.8-10.8)
[2020-10-09] MEDS ORDERED: Sodium Chloride 0.9% 250 ML 250 ML ONE (05:03)
[2020-10-09] MEDS ORDERED: Piperacillin/Tazobactam 4.5 GM VIAL ONE (05:04)
[2020-10-09] MEDS ORDERED: Sodium Chloride 0.9% 100 ML ONE (05:04)
[2020-10-09] MEDS ORDERED: Nitroglycerin 2% Ointment 1 INCH/1 GM Packet ONE ×2 (06:03→07:14)
[2020-10-09] MEDS ORDERED: Aspirin Chewable 81 MG TAB ONE (06:03)
[2020-10-09] MEDS ORDERED: Morphine 2 MG/ML VIAL ONE (06:16)
[2020-10-09] MEDS ORDERED: Famotidine In NaCl 20 mg/50 ml Premix Bag ONE (06:16)
[2020-10-09] MEDS ORDERED: Nitroglycerin 0.4 MG TAB 1 EACH ONE ×2 (06:35→07:14)
[2020-10-09 07:08] LABS: Bilirubin Negative (Negative); Blood, Urine Trace (Negative); Clarity Clear (Clear); Glucose, Urine (Dipstick) Negative (Negative); Ketone, Urine Negative (Negative); Leukocyte Small (Negative); Nitrite Negative (Negative); Protein, Urine (Dipstick) Negative (Neg-Trace); Specific Gravity, Urine 1.022 (1.002-1.036); Urobilinogen 0.2 mg/dL (Less than 2); pH, Urine 5.5 (5.0-9.0)
[2020-10-09 07:14] LABS: RBC/HPF 0-3 HPF (0-3)
[2020-10-09 07:15] LABS: Bacteria/HPF 1+ HPF (None Seen); Squamous Epithelial 0-3 HPF (0-3)
[2020-10-09 07:59] LABS: Lactic Acid 3.1 mmol/L (0.5-2.2)
== END 2020-10-09 09:38 | disposition short-term general hospital (02) ==
LOC: MADERS 03:24
DX: K52.9 Noninfective gastroenteritis and colitis, unspecified (principal); D72.829 Elevated white blood cell count, unspecified; E87.2 Acidosis; N30.90 Cystitis, unspecified without hematuria; R07.9 Chest pain, unspecified; I25.10 Atherosclerotic heart disease of native coronary artery without angina pectoris; K92.1 Melena; E11.9 Type 2 diabetes mellitus without complications; E78.5 Hyperlipidemia, unspecified; E78.00 Pure hypercholesterolemia, unspecified; Z87.19 Personal history of other diseases of the digestive system; I10 Essential (primary) hypertension; Z86.73 Personal history of transient ischemic attack (TIA), and cerebral infarction without residual deficits; Z79.84 Long term (current) use of oral hypoglycemic drugs; Z79.899 Other long term (current) drug therapy
CPT/HCPCS: 36415; 71045; 74176; 80053; 81003; 81015; 82274; 83605; 83630; 83690; 84484; 85025; 85610; 85730; 86850; 86900; 86901; 87040; 87045; 87046; 87086; 87186; 87324; 87427; 87449; 93005; 96365; 96367; 96375; J1720; J2270; J2543; J3490; J7050